=== PATIENT | male | born 1945 | race Caucasian/White ===

== ENCOUNTER 2017-02-01 07:49 | Emergency (ER) | payer MEDICARE, MEDICAID ==
[~2017-02-01] VITALS: Wt 80.0 kg
[2017-02-01] MEDS ORDERED: HYDROCODONE/APAP (5/325) TAB PO ONE (08:30)
--- NOTE | 2017-02-01 09:30 | RADRPT ---
PROCEDURE: XR Lumbar Spine. CLINICAL INDICATION: Back pain. TECHNIQUE: Three views. AP, lateral and cone-down lateral view of the lumbar spine were obtained. COMPARISON: No prior studies are available for comparison. FINDINGS: There are severe degenerative changes throughout the lumbar spine with disk space narrowing and oste ophytes at all levels. There is mild scoliosis convex left due to degenerative change. There is re trolisthesis at L2-3 measuring 0.7 cm. Alignment is otherwise normal. There is no fracture. There is no lytic or blastic lesion. Vascular calcifications are present consistent with atherosclerosis. IMPRESSION: 1. Severe degenerative changes throughout. 2. Retrolisthesis at L2-3 measuring 0.7 cm. 3. Mild scoliosis convex left. 4. Atherosclerosis. 5. No acute abnormality. RPTAT: QQ .Alberto Pedersen MD, Date Time Electronically viewed and signed by .Alberto Pedersen MD, on 02/01/2017 09:30 .R/
[2017-02-01] MEDS ORDERED: IBUP400T22 PO (10:11)
--- NOTE | 2017-02-01 10:15 | ERD ---
ER Documentation Chief Complaint Date/Time DATE: 02/01/17 TIME: 10:12 Chief Complaint PT STATES HE IS HAVING GENERAL BODY PAIN ROS All systems reviewed and are negative except as per history of present illness. Medications Home Meds Active Scripts Ibuprofen* (Motrin*) 400 Mg Tab, 400 MG PO Q6H Y for PAIN AND OR ELEVATED TEMP, #30 TAB Prov:JULIO PERES DO 02/01/17 PMhx/Soc Hx Miscellaneous Medical Probl: Yes (ARISTIDES, MULTIPLE ORTHO SURG) Hx Alcohol Use: No Hx Substance Use: No Hx Tobacco Use: No Smoking Status: Never smoker Physical Exam Vitals Vital Signs Date Time Temp Pulse Resp B/P Pulse Ox O2 Delivery O2 Flow Rate FiO2 02/01/17 07:54 98.6 78 18 138/71 99 Physical Exam Const: [] No distress Eyes: Normal Conjunctiva ENT: Normal External Ears, Nose and Mouth. Neck: Full range of motion..~ No meningismus. No midline tenderness. Resp: Clear to auscultation bilaterally Cardio: Regular rate and rhythm, no murmurs Abd: Soft, non tender, non distended. Normal bowel sounds Skin: Scattered bruises in various stages of healing. No bleeding or skin breaks. Back: Mild paraspinal muscle spasm of the right paraspinal muscle, no midline tenderness, no deformities. Ext: No cyanosis, or edema Neur: Awake and alert and oriented 3, cranial nerves II through XII intact, no cerebellar deficits Psych: Normal Mood and Affect Results 24 hrs Current Medications Medications (Trade) Dose Ordered Sig/Vivi Route PRN Reason Start Time Stop Time Status Last Admin Dose Admin Acetaminophen/ Hydrocodone Bitart ([place] (5/325)) 1 tab ONCE ONCE PO 02/01/17 08:30 02/01/17 08:31 DC 02/01/17 08:17 Procedures/MDM Elderly male with acute exacerbation of his chronic lower back pain. Was given a [place] tab in the emergency room. He stated that he had pain before he came but was asymptomatic in the emergency room after 30 minutes. Going to discharge him with instructions to see his primary care doctor in the next few days as well as ibuprofen, which the patient requested for his pain. Lumbar x-ray interpretation: Multilevel degenerative disc disease without acute fracture dislocation or subluxation. No foreign bodies per Departure Diagnosis: Primary Impression: Chronic lower back pain Condition: Stable Patient Instructions: Self-Care for Low Back Pain Additional Instructions: Call your primary care doctor TOMORROW for an appointment during the next 2-3 days.See the doctor sooner or return here if your condition worsens before your appointment time. JULIO PERES DO Feb 01, 2017 10:14
[2017-02-02] MEDS ORDERED: ENAL20TA PO ×2 (12:02→16:50)
[2017-02-02] MEDS ORDERED: DIVA125C2 PO (12:03)
[2017-02-02] MEDS ORDERED: FURO40TA4 PO (12:04)
[2017-02-02] MEDS ORDERED: AMLO5TAB4 PO (12:04)
[2017-02-02] MEDS ORDERED: ZOLP10TA5 PO ×2 (12:04→16:50)
[2017-02-02] MEDS ORDERED: POTA20TA15 PO (12:05)
[2017-02-02] MEDS ORDERED: TAMS0.4C2 PO ×2 (12:05→16:50)
[2017-02-02] MEDS ORDERED: QUET100T32 PO (12:06)
[2017-02-02] MEDS ORDERED: QUET50TA22 PO (12:06)
[2017-02-02] MEDS ORDERED: LIDO700A45 TP ×2 (12:07→16:50)
[2017-02-02] MEDS ORDERED: ESCI10TA48 PO (12:07)
[2017-02-02] MEDS ORDERED: EZET10TA3 PO ×2 (12:08→16:50)
[2017-02-02] MEDS ORDERED: FURO40SO PO (16:50)
[2017-02-02] MEDS ORDERED: POTA25TA PO (16:50)
[2017-02-02] MEDS ORDERED: QUET100T PO (16:50)
[2017-02-02] MEDS ORDERED: LORA0.5T PO (16:50)
[2017-02-02] MEDS ORDERED: DOCU-159 PO (16:50)
[2017-02-02] MEDS ORDERED: FLEETOIL RC (16:50)
[2017-02-02] MEDS ORDERED: DIVA125C11 PO (16:50)
[2017-02-02] MEDS ORDERED: HYDR-906 PO (16:50)
[2017-02-02] MEDS ORDERED: IBUP400T22 PO (16:50)
[2017-02-02] MEDS ORDERED: ALBU2.5V3 NEB (16:50)
[2017-02-02] MEDS ORDERED: ESCI5SOL2 PO (16:50)
[2017-02-02] MEDS ORDERED: MULT-542 PO (16:50)
[2017-02-02] MEDS ORDERED: MAGN400O4 PO (16:50)
== END 2017-02-01 12:07 | disposition home or self-care (01) ==
LOC: E/R 07:49
DX: M54.5 Low back pain (principal); R40.2142 Coma scale, eyes open, spontaneous, at arrival to emergency department; R40.2362 Coma scale, best motor response, obeys commands, at arrival to emergency department
CPT/HCPCS: 72100

== ENCOUNTER 2017-02-02 05:55 | Inpatient (IN) | payer MEDICARE, MEDICAID ==
[~2017-02-02] VITALS: Ht 182.9 cm; Wt 64.7 kg
[~2017-02-02 05:55] MED LIST: IBUP400T22 PO
[2017-02-02 05:58] VITALS: Ht 182.9 cm; Wt 64.7 kg
--- NOTE | 2017-02-02 07:29 | ERA ---
ER Documentation Chief Complaint Date/Time DATE: 02/02/17 TIME: 07:23 Chief Complaint bib ra 90. hx dementia, pt called w/ multiple complaints. c/o body pain HPI Patient is a 71-year-old male with history of schizophrenia who presents to the ER with suicidal ideation and disorganized thoughts. The patient states that he was in a rehab center, and was sent to the ER for psychosis. He complains of chronic total body pain. He states that yesterday he passed out, and that this is happened to him before because of his blood pressure dropping when he stands up. He denies trauma. He denies toxic ingestion. He denies drug use. He acknowledges feeling psychotic. He denies plan for suicide. He reports having recent diarrhea. ROS All systems reviewed and are negative except as per history of present illness. Medications Home Meds Discontinued Reported Medications Ezetimibe* (Zetia*) 10 Mg Tablet, 10 MG PO DAILY, TAB 02/02/17 Escitalopram Oxalate* (Escitalopram Oxalate*) 10 Mg Tablet, 10 MG PO DAILY, #30 TAB 02/02/17 Lidocaine (Lidocaine) 1 Each Adh..patch, 1 EACH TP DAILY 02/02/17 Quetiapine Fumarate* (Quetiapine Fumarate*) 100 Mg Tablet, 100 MG PO HS, TAB 02/02/17 Quetiapine Fumarate* (Quetiapine Fumarate*) 50 Mg Tablet, 50 MG PO TID, TAB 02/02/17 Tamsulosin Hcl* (Tamsulosin Hcl*) 0.4 Mg Cap.er.24h, 0.4 MG PO HS, CAP 02/02/17 Potassium Chloride* (K-Dur*) 20 Meq Tab.prt.sr, 20 MEQ PO DAILY, TAB.SA 02/02/17 Zolpidem Tartrate* (Zolpidem Tartrate*) 10 Mg Tablet, 10 MG PO QHS Y for INSOMNIA, #30 TAB 02/02/17 Amlodipine Besylate* (Norvasc*) 5 Mg Tablet, 5 MG PO DAILY, TAB 02/02/17 Furosemide* (Furosemide*) 40 Mg Tablet, 40 MG PO DAILY, TAB 02/02/17 Divalproex Sodium* (Divalproex Sodium*) 125 Mg Cap.sprink, 125 MG PO QID, #120 CAP 02/02/17 Enalapril Maleate* (Enalapril Maleate*) 20 Mg Tablet, 20 MG PO DAILY, TAB 02/02/17 Discontinued Scripts Ibuprofen* (Motrin*) 400 Mg Tab, 400 MG PO Q6H Y for PAIN AND OR ELEVATED TEMP, #30 TAB Prov:JULIO PERES DO 02/01/17 Allergies Allergies: Coded Allergies: Unknown: Unable to obtain (Unverified , 02/02/17) PMhx/Soc Past medical history: Schizophrenia, hyponatremia, orthostatic hypotension Past surgical history: Bilateral knees Social history: Smokes cigarettes, denies alcohol or illicit drugs. Medical and Surgical Hx: pt denies Medical Hx, pt denies Surgical Hx Hx Miscellaneous Medical Probl: Yes (PYSCH, MULTIPLE ORTHO SURG) Hx Alcohol Use: No Hx Substance Use: No Hx Tobacco Use: No Smoking Status: Never smoker FmHx Family History: No coronary disease, No diabetes Physical Exam Vitals Vital Signs Date Time Temp Pulse Resp B/P Pulse Ox O2 Delivery O2 Flow Rate FiO2 02/02/17 08:14 97.6 82 136/106 100 Room Air 02/02/17 07:30 97.8 78 14 150/80 100 Room Air 02/02/17 05:58 98.0 88 20 114/64 99 Physical Exam Const: Alert, no acute distress Head: Atraumatic Eyes: Normal Conjunctiva, no pallor, no icterus ENT: Normal External Ears, Nose and Mouth. Mucous membranes tacky Neck: Full range of motion. No meningismus. Resp: Clear to auscultation bilaterally, no wheezes, no rales Cardio: Regular rate and rhythm, no murmurs Abd: Soft, non tender, non distended. No guarding, no rebound. Incontinent of urine Rectal: Guaiac negative, control positive brown stool Skin: No petechiae or rashes, ecchymosis to right hip without bony tenderness. Back: No midline or flank tenderness Ext: No cyanosis, 1+ pitting edema bilateral lower extremities Neur: Awake and alert, cranial nerves II through XII intact bilaterally, moves and feels 4 extremities appropriately, no tremor Psych: Rapid speech, disorganized thought pattern, flight of ideas Result Diagram: 02/02/17 0937 02/02/17 0937 Results 24 hrs Laboratory Tests Test 02/02/17 09:31 02/02/17 09:37 02/02/17 09:40 02/02/17 10:35 Osmolality 268mOsm/kg White Blood Count 9.010^3/ul Red Blood Count 3.3310^6/ul Hemoglobin 9.5g/dl Hematocrit 28.4% Mean Corpuscular Volume 85.3fl Mean Corpuscular Hemoglobin 28.5pg Mean Corpuscular Hemoglobin Concent 33.5g/dl Red Cell Distribution Width 12.1% Platelet Count 81126^3/UL Mean Platelet Volume 9.7fl Neutrophils % 83.7% Lymphocytes % 8.1% Monocytes % 5.5% Eosinophils % 1.8% Basophils % 0.3% Nucleated Red Blood Cells % 0.0/100WBC Neutrophils # 7.510^3/ul Lymphocytes # 0.710^3/ul Monocytes # 0.510^3/ul Eosinophils # 0.210^3/ul Basophils # 0.010^3/ul Nucleated Red Blood Cells # 0.010^3/ul Prothrombin Time 13.7Sec Prothrombin Time Ratio 1.1 INR International Normalized Ratio 1.05 Sodium Level 124mmol/L Potassium Level 4.6mmol/L Chloride Level 97mmol/L Carbon Dioxide Level 22mmol/L Anion Gap 10 Blood Urea Nitrogen 24mg/dl Creatinine 1.05mg/dl Glucose Level 92mg/dl Calcium Level 9.1mg/dl Total Bilirubin 0.1mg/dl Direct Bilirubin 0.00mg/dl Indirect Bilirubin 0.1mg/dl Aspartate Amino Transf (AST/SGOT) 31IU/L Alanine Aminotransferase (ALT/SGPT) 32IU/L Alkaline Phosphatase 67IU/L Total Protein 6.2g/dl Albumin 4.2g/dl Globulin 2.00g/dl Albumin/Globulin Ratio 2.10 Salicylates Level < 1.0mg/dl Acetaminophen Level < 10.0ug/ml Ethyl Alcohol Level < 10.0mg/dl Urine Color STRAW Urine Clarity CLEAR Urine pH 7.0 Urine Specific [place] 1.006 Urine Ketones TRACEmg/dL Urine Nitrite NEGATIVEmg/dL Urine Bilirubin NEGATIVEmg/dL Urine Urobilinogen NEGATIVEmg/dL Urine Leukocyte Esterase NEGATIVELeu/ul Urine Hemoglobin NEGATIVEmg/dL Urine Osmolality 274mOsm/kg Urine Random Creatinine 21.22mg/dl Urine Random Sodium 65mmol/L Urine Glucose NEGATIVEmg/dL Urine Total Protein NEGATIVEmg/dl Urine Opiates Screen Negative Urine Barbiturates Negative Urine Amphetamines Screen Negative Urine Benzodiazepines Screen Negative Urine Cocaine Screen Negative Urine Cannabinoids Negative Thyroid Stimulating Hormone (TSH) 3.440MIU/L Current Medications Medications (Trade) Dose Ordered Sig/Vivi Route PRN Reason Start Time Stop Time Status Last Admin Dose Admin Lorazepam (Ativan) 1 mg ONCE ONCE PO 02/02/17 07:30 02/02/17 07:31 DC 02/02/17 07:58 Olanzapine 5 mg 5 mg ONCE ONCE PO 02/02/17 07:30 02/02/17 07:31 DC 02/02/17 07:58 Sodium Chloride (NS) 1,000 ml @ 1,000 mls/hr Q1H ONCE IV 02/02/17 13:00 02/02/17 13:59 DC Procedures/MDM EKG read by me: Time 823, rate 80 Rhythm: Normal sinus [place]: Normal Intervals: Normal ST-T waves: no ischemic changes Ectopy: Occasional PVCs and PACs. Q-waves: No Impression: No evidence of ischemia or arrhythmia MDM: Patient is a 71-year-old male who presents to the ER with signs of psychosis. History is limited due to the patient not being a reliable historian. For example, he states that he had a stroke yesterday, that his sodium level is usually 0. He has no signs of toxic ingestion. He has normal vital signs, and appears medically well. The patient is found to be hyponatremic with a sodium of 124. He states that he has a history of low sodium, but I do not know what his baseline is or what the etiology of his hyponatremia is. Patient cannot tell me what medications he is taking, but there is record of him being on Lasix and potassium. It is unclear why he is taking Lasix. Given that he reports a history of orthostatic hypotension, he may be over diuresed. Urine electrolytes were sent, and a small fluid challenge was given due to the patient having an elevated BUN to creatinine ratio. Repeat BMP was ordered. I will admit the patient to observation for further workup of his hyponatremia and until his sodium level has stabilized. The patient will need psychiatric evaluation for possible hold prior to discharge. The patient was found to have a normocytic anemic, but has a negative guaiac exam. His baseline hemoglobin is unknown. Departure Diagnosis: Primary Impression: Hyponatremia Additional Impressions: Psychosis Qualified Code: F20.9 - Schizophrenia, unspecified type Anemia Qualified Code: D64.9 - Anemia, unspecified type Condition: Stable REGINE HEAD MD Feb 02, 2017 07:29
[2017-02-02] MEDS ORDERED: OLANZAPINE 5 MG TAB PO ONE (07:30)
[2017-02-02] MEDS ORDERED: LORAZEPAM 1 MG TAB PO ONE (07:30)
[2017-02-02 09:52] LABS: ADD SCAN DIFF NO
[2017-02-02 09:53] LABS: BASOPHILS % 0.3 % (0.0-2.0); EOSINOPHILS # 0.2 10^3/ul (0.0-0.5); EOSINOPHILS % 1.8 % (0.0-7.0); HEMATOCRIT 28.4 % (42.0-52.0); HEMOGLOBIN 9.5 g/dl (14.0-18.0); LYMPHOCYTES # 0.7 10^3/ul (0.8-2.9); LYMPHOCYTES % 8.1 % (15.0-51.0); MEAN CORPUSCULAR HEMOGLOBIN 28.5 pg (29.0-33.0); MEAN CORPUSCULAR HGB CONC 33.5 g/dl (32.0-37.0); MEAN CORPUSCULAR VOLUME 85.3 fl (82.0-101.0); MEAN PLATELET VOLUME 9.7 fl (7.4-10.4); MONOCYTE # 0.5 10^3/ul (0.3-0.9); MONOCYTES % 5.5 % (0.0-11.0); NEUTROPHIL # 7.5 10^3/ul (1.6-7.5); NEUTROPHILS % 83.7 % (39.0-77.0); PLATELET COUNT 241 10^3/UL (140-415); RED BLOOD COUNT 3.33 10^6/ul (4.70-6.10); RED CELL DISTRIBUTION WIDTH 12.1 % (11.5-14.5)
[2017-02-02 09:57] LABS: ADD UMIC NO; UR ASCORBIC ACID NEGATIVE (NEGATIVE); UR BILIRUBIN (Dip) NEGATIVE (NEGATIVE); UR BLOOD (Dip) NEGATIVE (NEGATIVE); UR CLARITY CLEAR (CLEAR); UR COLOR STRAW (YELLOW); UR GLUCOSE (Dip) NEGATIVE (NEGATIVE); UR KETONES (Dip) TRACE mg/dL (NEGATIVE); UR LEUKOCYTE ESTERASE (Dip) NEGATIVE Leu/ul (NEGATIVE); UR NITRITE (Dip) NEGATIVE (NEGATIVE); UR SPECIFIC GRAVITY (Dip) 1.006 (1.003-1.030); UR TOTAL PROTEIN (Dip) NEGATIVE (NEGATIVE); UR UROBILINOGEN (Dip) NEGATIVE (NEGATIVE)
[2017-02-02 10:21] LABS: INR 1.05; PROTIME 13.7 Sec (12.2-14.2); PT RATIO 1.1
[2017-02-02 10:27] LABS: ALANINE AMINOTRANSFERASE 32 IU/L (13-69); ALBUMIN 4.2 g/dl (3.3-4.9); ALKALINE PHOSPHATASE 67 IU/L (42-121); ANION GAP 10 (8-16); ASPARTATE AMINO TRANSFERASE 31 IU/L (15-46); BILIRUBIN,INDIRECT 0.1 mg/dl (0-1.1); BILIRUBIN,TOTAL 0.1 mg/dl (0.2-1.3); BLOOD UREA NITROGEN 24 mg/dl (7-20); CALCIUM 9.1 mg/dl (8.4-10.2); CARBON DIOXIDE 22 mmol/L (21-31); CHLORIDE 97 mmol/L (97-110); CREATININE 1.05 mg/dl (0.61-1.24); GLUCOSE 92 mg/dl (70-220); POTASSIUM 4.6 mmol/L (3.5-5.1); SODIUM 124 mmol/L (135-144); TOTAL PROTEIN 6.2 g/dl (6.1-8.1)
[2017-02-02 10:33] LABS: ACETAMINOPHEN < 10.0 ug/ml (10.0-30.0)
[2017-02-02 10:34] LABS: SALICYLATE < 1.0 mg/dl (5.0-30.0)
[2017-02-02 10:35] LABS: ETHANOL < 10.0 mg/dl
[2017-02-02 10:42] LABS: OPIATES Negative (NEGATIVE)
[2017-02-02 10:53] LABS: BARBITURATES Negative (NEGATIVE); BENZODIAZEPINES Negative (NEGATIVE); CANNABINOIDS Negative (NEGATIVE); COCAINE Negative (NEGATIVE)
[2017-02-02] MEDS ORDERED: ENAL20TA PO ×2 (12:02→16:50)
[2017-02-02] MEDS ORDERED: DIVA125C2 PO (12:03)
[2017-02-02] MEDS ORDERED: FURO40TA4 PO (12:04)
[2017-02-02] MEDS ORDERED: ZOLP10TA5 PO ×2 (12:04→16:50)
[2017-02-02] MEDS ORDERED: AMLO5TAB4 PO (12:04)
[2017-02-02] MEDS ORDERED: POTA20TA15 PO (12:05)
[2017-02-02] MEDS ORDERED: TAMS0.4C2 PO ×2 (12:05→16:50)
[2017-02-02] MEDS ORDERED: QUET50TA22 PO (12:06)
[2017-02-02] MEDS ORDERED: QUET100T32 PO (12:06)
[2017-02-02] MEDS ORDERED: ESCI10TA48 PO (12:07)
[2017-02-02] MEDS ORDERED: LIDO700A45 TP ×2 (12:07→16:50)
[2017-02-02] MEDS ORDERED: EZET10TA3 PO ×2 (12:08→16:50)
[2017-02-02] MEDS ORDERED: SOD CHLORIDE 0.9% 1,000 ML IV ONE (13:00)
[2017-02-02] MEDS ORDERED: ACETAMINOPHEN 325 MG TAB PO PRN ×2 (14:30→15:00)
[2017-02-02] MEDS ORDERED: ONDANSETRON 4 MG INJ IV PRN ×2 (14:30→15:00)
[2017-02-02] MEDS ORDERED: morphine 2 MG INJ IV PRN (15:00)
[2017-02-02] MEDS ORDERED: NACL 0.9% 3 ML SYG IV SCH (15:00)
--- NOTE | 2017-02-02 15:02 | HP ---
Date/Time of Note Date/Time of Note DATE: 02/02/17 TIME: 14:58 Assessment/Plan VTE Prophylaxis VTE Prophylaxis Intervention: SCD's Assessment/Plan Chief Complaint/Hosp Course 1. Hyponatremia-cause is unknown at this time IV fluids with normal saline, urine sodium is within normal limits going against SIADH 2. Psychiatric disorder likely schizophrenia Start Risperdal 0.5 twice daily, patient will likely benefit from telemetry psych eval 3. Normocytic anemia likely of chronic disease Monitor Prophylaxis: SCDs Problems: HPI/ROS Admit Date/Time Admit Date/Time February 02, 2017 Hx of Present Illness She is a 71-year-old male with history of psychiatric disorder. Patient is a poor historian medical history is unable to be obtained. Patient states he comes in with generalized body pain, patient is very tangential and incoherent, in the ER he was found to have a low sodium. ROS Unable to obtain secondary to psychiatric illness PMH/Family/Social Past Medical History Unable to obtain secondary to psychiatric illness Past Surgical History Unable to obtain Social History Unable to obtain Smoking Status: Never smoker Exam/Review of Systems Vital Signs Vitals Vital Signs Date Time Temp Pulse Resp B/P Pulse Ox O2 Delivery O2 Flow Rate FiO2 02/02/17 08:14 97.6 82 136/106 100 Room Air 02/02/17 07:30 14 Exam Constitutional: alert Psych: confusion Head: normocephalic Respiratory: clear to auscultation Cardiovascular: regular rate and rhythm Gastrointestinal: soft, No distended Musculoskeletal: No nl extremities to inspection (Bruising noted in left thigh) Labs Result Diagram: 02/02/17 0937 02/02/17 0937 Medications Medications Current Medications Sodium Chloride (NS) 1,000 ml @ 100 mls/hr Q10H IV ; Start 02/02/17 at 14:36 Ondansetron HCl (Zofran Inj) 4 mg Q6H PRN IV NAUSEA AND/OR VOMITING; Start 02/02 at 15:00 Acetaminophen (Tylenol Tab) 650 mg Q6H PRN PO PAIN LEVEL 1-3 OR FEVER; Start at 15:00 Acetaminophen/ Hydrocodone Bitart ([place] (5/325)) 1 tab Q6H PRN PO MODERATE PAIN LEVEL 4-6; Start 02/02/17 at 15:00 Morphine Sulfate (morphine) 2 mg Q4H PRN IV SEVERE PAIN LEVEL 7-10; Start at 15:00 NACHO SULLIVAN Feb 02, 2017 15:02
[2017-02-02] MEDS: HYDROCODONE/APAP (5/325) TAB PO PRN ×2 (15:07→23:09)
[2017-02-02] MEDS: SOD CHLORIDE 0.9% 1,000 ML IV SCH ×2 (15:14→17:01)
[2017-02-02] MEDS ORDERED: LORAZEPAM 2 MG INJ IV PRN (15:30)
[2017-02-02 15:59] VITALS: TEMP 98.3
[2017-02-02 16:21] VITALS: BP 150/78; PULSE 73; RESP 18
[2017-02-02] MEDS ORDERED: HYDR-906 PO (16:50)
[2017-02-02] MEDS ORDERED: QUET100T PO (16:50)
[2017-02-02] MEDS ORDERED: MAGN400O4 PO (16:50)
[2017-02-02] MEDS ORDERED: DIVA125C11 PO (16:50)
[2017-02-02] MEDS ORDERED: DOCU-159 PO (16:50)
[2017-02-02] MEDS ORDERED: FURO40SO PO (16:50)
[2017-02-02] MEDS ORDERED: POTA25TA PO (16:50)
[2017-02-02] MEDS ORDERED: ALBU2.5V3 NEB (16:50)
[2017-02-02] MEDS ORDERED: LORA0.5T PO (16:50)
[2017-02-02] MEDS ORDERED: ESCI5SOL2 PO (16:50)
[2017-02-02] MEDS ORDERED: IBUP400T22 PO (16:50)
[2017-02-02] MEDS ORDERED: MULT-542 PO (16:50)
[2017-02-02] MEDS ORDERED: MINE133E23 RC (16:50)
[2017-02-02 17:51] LABS: CALCIUM 9.2 mg/dl (8.4-10.2); CREATININE 0.95 mg/dl (0.61-1.24); POTASSIUM 4.4 mmol/L (3.5-5.1)
[2017-02-02 20:23] VITALS: BP 140/63; RESP 18
[2017-02-03] MEDS: ZOLPIDEM 5 MG TAB PO PRN (00:26)
[2017-02-03 02:30] VITALS: BP 152/69; RESP 18
[2017-02-03] MEDS: SOD CHLORIDE 0.9% 1,000 ML IV SCH ×3 (03:15→20:38)
[2017-02-03 05:21] LABS: ADD SCAN DIFF NO
[2017-02-03 05:30] LABS: BASOPHIL # 0.1 10^3/ul (0.0-0.1); BASOPHILS % 1.3 % (0.0-2.0); EOSINOPHILS # 0.2 10^3/ul (0.0-0.5); EOSINOPHILS % 6.1 % (0.0-7.0); HEMATOCRIT 28.2 % (42.0-52.0); HEMOGLOBIN 9.1 g/dl (14.0-18.0); LYMPHOCYTES # 0.8 10^3/ul (0.8-2.9); LYMPHOCYTES % 20.9 % (15.0-51.0); MEAN CORPUSCULAR HEMOGLOBIN 27.7 pg (29.0-33.0); MEAN CORPUSCULAR HGB CONC 32.3 g/dl (32.0-37.0); MEAN PLATELET VOLUME 9.7 fl (7.4-10.4); MONOCYTE # 0.4 10^3/ul (0.3-0.9); MONOCYTES % 11.1 % (0.0-11.0); NEUTROPHIL # 2.3 10^3/ul (1.6-7.5); NEUTROPHILS % 59.8 % (39.0-77.0); PLATELET COUNT 255 10^3/UL (140-415); RED BLOOD COUNT 3.28 10^6/ul (4.70-6.10); RED CELL DISTRIBUTION WIDTH 12.3 % (11.5-14.5); WHITE BLOOD COUNT 3.8 10^3/ul (4.8-10.8)
[2017-02-03 05:51] LABS: CALCIUM 9.1 mg/dl (8.4-10.2); CREATININE 1.08 mg/dl (0.61-1.24); MAGNESIUM 1.6 mg/dl (1.7-2.5); PHOSPHORUS 4.5 mg/dl (2.5-4.9); POTASSIUM 4.9 mmol/L (3.5-5.1)
[2017-02-03 08:02] VITALS: BP 132/63; RESP 17
[2017-02-03] MEDS: RISPERIDONE 0.25 MG TAB PO SCH ×2 (09:44→20:34)
[2017-02-03] MEDS: HYDROCODONE/APAP (5/325) TAB PO PRN ×2 (12:52→20:35)
[2017-02-03] MEDS ORDERED: MAGNESIUM SULFATE 2 GM/50 ML 50 ML IVPB ONE (14:00)
[2017-02-03 14:53] VITALS: BP 142/66; RESP 17
--- NOTE | 2017-02-03 19:43 | PN ---
Date/Time of Note Date/Time of Note DATE: 02/03/17 TIME: 19:41 Assessment/Plan VTE Prophylaxis VTE Prophylaxis Intervention: SCD's Lines/Catheters IV Catheter Type (from Nrs): Peripheral IV Assessment/Plan Chief Complaint/Hosp Course 1. Hyponatremia-improved IV fluids with normal saline, urine sodium is within normal limits going against SIADH 2. 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 Normocytic anemia likely of chronic disease Monitor 4. COPD DuoNeb as needed Prophylaxis: SCDs Problems: Subjective 24 Hr Interval Summary Constitutional: disoriented Exam/Review of Systems Vital Signs Vitals Vital Signs Date Time Temp Pulse Resp B/P Pulse Ox O2 Delivery O2 Flow Rate FiO2 02/03/17 14:53 98.3 80 17 142/66 97 02/02/17 16:21 Room Air Intake and Output 02/02/17 02/02/17 02/03/17 15:00 23:00 07:00 Intake Total 25 ml 1760 ml Output Total 1100 ml Balance 25 ml 660 ml Exam Psych: confusion Respiratory: clear to auscultation Cardiovascular: regular rate and rhythm Gastrointestinal: soft, No distended Musculoskeletal: nl extremities to inspection Results Result Diagram: 02/03/17 0455 02/03/17 0455 Results 24 hrs Laboratory Tests Test 02/03/17 04:55 White Blood Count 3.8 #L Red Blood Count 3.28 L Hemoglobin 9.1 L Hematocrit 28.2 L Mean Corpuscular Volume 86.0 Mean Corpuscular Hemoglobin 27.7 L Mean Corpuscular Hemoglobin Concent 32.3 Red Cell Distribution Width 12.3 Platelet Count 255 Mean Platelet Volume 9.7 Neutrophils % 59.8 Lymphocytes % 20.9 Monocytes % 11.1 H Eosinophils % 6.1 Basophils % 1.3 Nucleated Red Blood Cells % 0.0 Neutrophils # 2.3 Lymphocytes # 0.8 Monocytes # 0.4 Eosinophils # 0.2 Basophils # 0.1 Nucleated Red Blood Cells # 0.0 Sodium Level 134 L Potassium Level 4.9 Chloride Level 99 Carbon Dioxide Level 23 Anion Gap 17 H Blood Urea Nitrogen 23 H Creatinine 1.08 Glucose Level 88 Hemoglobin A1c 5.3 Calcium Level 9.1 Phosphorus Level 4.5 Magnesium Level 1.6 L Medications Medications Current Medications Sodium Chloride (NS) 1,000 ml @ 100 mls/hr Q10H IV Last administered on 03:15; Admin Dose 100 MLS/HR; Start 02/02/17 at 14:36 Ondansetron HCl (Zofran Inj) 4 mg Q6H PRN IV NAUSEA AND/OR VOMITING; Start 02/02 at 15:00 Acetaminophen (Tylenol Tab) 650 mg Q6H PRN PO PAIN LEVEL 1-3 OR FEVER; Start at 15:00 Acetaminophen/ Hydrocodone Bitart ([place] (5/325)) 1 tab Q6H PRN PO MODERATE PAIN LEVEL 4-6 Last administered on 02/03/17 12:52; Admin Dose 1 TAB; Start 02/02 at 15:00 Morphine Sulfate (morphine) 2 mg Q4H PRN IV SEVERE PAIN LEVEL 7-10; Start at 15:00 Risperidone (Risperdal) 0.5 mg BID PO Last administered on 02/03/17 09:44; Admin Dose 0.5 MG; Start 02/03/17 at 09:00 Lorazepam (Ativan) 1 mg Q4 PRN IV AGITATION/ANXIETY; Start 02/02/17 at 15:30 Lorazepam (Ativan) 0.5 mg Q6 PRN PO ANXIETY; Start 02/02/17 at 22:30 Zolpidem Tartrate (Ambien) 10 mg QHS PRN PO INSOMNIA Last administered on 00:26; Admin Dose 10 MG; Start 02/02/17 at 22:30 NACHO SULLIVAN Feb 03, 2017 19:42
[2017-02-03 20:30] VITALS: BP 166/76; RESP 18
[2017-02-04] MEDS: ZOLPIDEM 5 MG TAB PO PRN (00:10)
[2017-02-04 02:36] VITALS: BP 124/55; RESP 18
[2017-02-04] MEDS: HYDROCODONE/APAP (5/325) TAB PO PRN ×3 (04:21→17:45)
[2017-02-04] MEDS: LORAZEPAM 0.5 MG TAB PO PRN ×2 (04:24→21:17)
[2017-02-04] MEDS: ALBUTEROL/IPRATROPIUM (NEB) 3 ML AMP HHN PRN ×2 (04:40→21:30)
[2017-02-04 06:24] LABS: ADD SCAN DIFF NO
[2017-02-04 06:41] LABS: BASOPHILS % 0.4 % (0.0-2.0); EOSINOPHILS # 0.2 10^3/ul (0.0-0.5); EOSINOPHILS % 5.1 % (0.0-7.0); HEMOGLOBIN 9.3 g/dl (14.0-18.0); LYMPHOCYTES # 1.1 10^3/ul (0.8-2.9); LYMPHOCYTES % 23.3 % (15.0-51.0); MEAN CORPUSCULAR HEMOGLOBIN 27.8 pg (29.0-33.0); MEAN CORPUSCULAR HGB CONC 32.1 g/dl (32.0-37.0); MEAN CORPUSCULAR VOLUME 86.8 fl (82.0-101.0); MEAN PLATELET VOLUME 9.9 fl (7.4-10.4); MONOCYTE # 0.5 10^3/ul (0.3-0.9); MONOCYTES % 10.4 % (0.0-11.0); NEUTROPHIL # 2.9 10^3/ul (1.6-7.5); NEUTROPHILS % 60.6 % (39.0-77.0); PLATELET COUNT 262 10^3/UL (140-415); RED BLOOD COUNT 3.34 10^6/ul (4.70-6.10); RED CELL DISTRIBUTION WIDTH 12.2 % (11.5-14.5); WHITE BLOOD COUNT 4.7 10^3/ul (4.8-10.8)
[2017-02-04 07:00] LABS: CALCIUM 8.9 mg/dl (8.4-10.2); CREATININE 1.02 mg/dl (0.61-1.24); MAGNESIUM 1.9 mg/dl (1.7-2.5); POTASSIUM 4.4 mmol/L (3.5-5.1)
[2017-02-04] MEDS: SOD CHLORIDE 0.9% 1,000 ML IV SCH ×2 (07:58→17:46)
[2017-02-04] MEDS: RISPERIDONE 0.25 MG TAB PO SCH ×2 (08:10→20:16)
[2017-02-04 08:15] VITALS: BP 157/65; RESP 18
[2017-02-04 14:56] VITALS: BP 126/60; RESP 18
--- NOTE | 2017-02-04 15:41 | PN ---
Date/Time of Note Date/Time of Note DATE: 02/04/17 TIME: 15:38 Assessment/Plan VTE Prophylaxis VTE Prophylaxis Intervention: SCD's Lines/Catheters IV [facility] Type (from [facility] Peripheral IV Urinary Cath still in place: No Assessment/Plan Assessment/Plan 1. Hyponatremia-improved, avoid excessive water intake, follow up with Na 2. Psychiatric disorder likely schizophrenia, awaiting for psychiatry evaluation 3. Normocytic anemia likely of chronic disease, stable 4. COPD, stable 5. Prophylaxis: SCDs Subjective 24 Hr Interval Summary Free Text/Dictation no distress Exam/Review of Systems Vital Signs Vitals Vital Signs Date Time Temp Pulse Resp B/P Pulse Ox O2 Delivery O2 Flow Rate FiO2 02/04/17 14:56 97.2 66 18 126/60 98 02/04/17 04:43 21 02/02/17 16:21 Room Air Intake and Output 02/03/17 02/03/17 02/04/17 15:00 23:00 07:00 Intake Total 1630 ml 1930 ml Output Total 1475 ml 2000 ml Balance 155 ml -70 ml Exam Constitutional: alert, oriented, well developed Head: atraumatic, normocephalic Eyes: EOMI, PERRL, nl conjunctiva, nl lids ENMT: nl external ears & nose, nl lips & teeth, nl nasal mucosa & septum Neck: non-tender, supple Respiratory: clear to auscultation, normal air movement, No congested cough, No crackles/rales, No diminished breath sounds, No intercostal retraction, No labored breathing, No other, No respirations, No tactile fremitus, No wheezing Cardiovascular: nl pulses, regular rate and rhythm, No S3, No S4, No bruits, No diastolic murmur, No edema, No gallop, No irregular rhythm, No jugular venous distention (JVD), No murmurs/extra sounds, No other, No rub, No systolic murmur Gastrointestinal: nl liver, spleen, non-tender, soft, No ascites, No bowel sounds, No distended, No firm, No hepatomegaly, No mass , No other, No rebound or guarding, No splenomegaly, No surgical scars, No tender Musculoskeletal: nl extremities to inspection Extremities: normal pulses, No calf tenderness, No clubbing, No cyanosis, No edema, No other, No palpable cord, No pitting pedal edema, No tenderness 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, nl mental status, nl speech, nl strength Skin: nl turgor Results Result Diagram: 02/04/1715 02/04/1715 Results 24 hrs Laboratory Tests Test 02/04/17 05:15 White Blood Count 4.7 #L Red Blood Count 3.34 L Hemoglobin 9.3 L Hematocrit 29.0 L Mean Corpuscular Volume 86.8 Mean Corpuscular Hemoglobin 27.8 L Mean Corpuscular Hemoglobin Concent 32.1 Red Cell Distribution Width 12.2 Platelet Count 262 Mean Platelet Volume 9.9 Neutrophils % 60.6 Lymphocytes % 23.3 Monocytes % 10.4 Eosinophils % 5.1 Basophils % 0.4 Nucleated Red Blood Cells % 0.0 Neutrophils # 2.9 Lymphocytes # 1.1 Monocytes # 0.5 Eosinophils # 0.2 Basophils # 0.0 Nucleated Red Blood Cells # 0.0 Sodium Level 134 L Potassium Level 4.4 Chloride Level 106 Carbon Dioxide Level 20 L Anion Gap 12 Blood Urea Nitrogen 25 H Creatinine 1.02 Glucose Level 97 Calcium Level 8.9 Magnesium Level 1.9 Medications Medications Current Medications Sodium Chloride (NS) 1,000 ml @ 100 mls/hr Q10H IV Last administered on 07:58; Admin Dose 100 MLS/HR; Start 02/02/17 at 14:36 Ondansetron HCl (Zofran Inj) 4 mg Q6H PRN IV NAUSEA AND/OR VOMITING; Start 02/02 at 15:00 Acetaminophen (Tylenol Tab) 650 mg Q6H PRN PO PAIN LEVEL 1-3 OR FEVER; Start at 15:00 Acetaminophen/ Hydrocodone Bitart ([place] (5/325)) 1 tab Q6H PRN PO MODERATE PAIN LEVEL 4-6 Last administered on 02/04/17 11:21; Admin Dose 1 TAB; Start 02/02/17 at 15:00 Morphine Sulfate (morphine) 2 mg Q4H PRN IV SEVERE PAIN LEVEL 7-10 Last administered on 02/04/17 02:17; Admin Dose 2 MG; Start 02/02/17 at 15:00 Risperidone (Risperdal) 0.5 mg BID PO Last administered on 02/04/17 08:10; Admin Dose 0.5 MG; Start 02/03/17 at 09:00 Lorazepam (Ativan) 0.5 mg Q6 PRN PO ANXIETY Last administered on 02/04/17 04: 24; Admin Dose 0.5 MG; Start 02/02/17 at 22:30 Zolpidem Tartrate (Ambien) 10 mg QHS PRN PO INSOMNIA Last administered on 00:10; Admin Dose 10 MG; Start 02/02/17 at 22:30 DUNG MCKEON MD Feb 04, 2017 15:41
--- NOTE | 2017-02-04 17:41 | PSY ---
Date/Time of Note Date/Time of Note DATE: 02/04/17 TIME: 17:35 Psychiatric Subjective Eval Consent Pt consented to telemedicine: Yes Subjective Evaluation Chief Complaint: bib ra 89. hx dementia, pt called w/ multiple complaints. c/o body pain Reason for consult: Evaluation History of present illness Pt is reportedly conserved for a dementia. He also has a history of psychiatric issues so a consult was requested. He reports being diagnosed with "manic depressive paranoid schizophrenia." He states he is not sleeping well, makes statements such as "I " and "I am having flashbacks." He denies si and hi. Report he knows he is in a hospital. Pt reports multiple psychiatric admissions. He states he usually takes seroquel 100mg. Pt knows month, year and reason he is in hospital. Past psychiatric history As noted above. 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 [facility] because they lost his records Hospitalization: yes Family History Unknown Medical history Problems Medical Problems: (1) Anemia Status: Acute (2) Chronic lower back pain Status: Acute (3) Hyponatremia Status: Acute (4) Psychosis Status: Acute Allergies: Coded Allergies: Unknown: Unable to obtain (Unverified , 02/02/17) Substance Abuse Substance use: No known substance abuse Social History Marital status: single Level of education: Unk DPA/Conservatorship: Yes Occupation/Assisted: Unk Psychiatric Objective Eval Mental Status Examination: Eye Contact: Fair Psychomotor Activity: Normal Behavior: Cooperative Speech: Pressured AFFECT: Anxious Mood: Anxious Though Process: Tangential Thought Content: Delusions Homicidal: No On 72 hour hold: No Orientation: x3 Cognition: Alert Insight: Impared Judgement: Impared Laboratory Results Laboratory Tests Test 02/03/17 04:55 02/04/17 05:15 White Blood Count 3.810^3/ul 4.710^3/ul Red Blood Count 3.2810^6/ul 3.3410^6/ul Hemoglobin 9.1g/dl 9.3g/dl Hematocrit 28.2% 29.0% Mean Corpuscular Volume 86.0fl 86.8fl Mean Corpuscular Hemoglobin 27.7pg 27.8pg Mean Corpuscular Hemoglobin Concent 32.3g/dl 32.1g/dl Red Cell Distribution Width 12.3% 12.2% Platelet Count 03355^3/UL 87741^3/UL Mean Platelet Volume 9.7fl 9.9fl Neutrophils % 59.8% 60.6% Lymphocytes % 20.9% 23.3% Monocytes % 11.1% 10.4% Eosinophils % 6.1% 5.1% Basophils % 1.3% 0.4% Nucleated Red Blood Cells % 0.0/100WBC 0.0/100WBC Neutrophils # 2.310^3/ul 2.910^3/ul Lymphocytes # 0.810^3/ul 1.110^3/ul Monocytes # 0.410^3/ul 0.510^3/ul Eosinophils # 0.210^3/ul 0.210^3/ul Basophils # 0.110^3/ul 0.010^3/ul Nucleated Red Blood Cells # 0.010^3/ul 0.010^3/ul Sodium Level 134mmol/L 134mmol/L Potassium Level 4.9mmol/L 4.4mmol/L Chloride Level 99mmol/L 106mmol/L Carbon Dioxide Level 23mmol/L 20mmol/L Anion Gap 17 12 Blood Urea Nitrogen 23mg/dl 25mg/dl Creatinine 1.08mg/dl 1.02mg/dl Glucose Level 88mg/dl 97mg/dl Hemoglobin A1c 5.3% Calcium Level 9.1mg/dl 8.9mg/dl Phosphorus Level 4.5mg/dl Magnesium Level 1.6mg/dl 1.9mg/dl Assessment and Plan Assessment/Diagnosis [place] I: Unspecified Psychotic Disorder, Dementia [place] III: Hyponatremia Recommendation/Plan Medication Management Consider increasing risperdal to 1mg bid. Psychotherapy N/A Pt. Caregiver/Family Education N/A. Follow-up/Disposition Patient increasing psychosis likely delirium related to the hyponatremia. However, he appeared more stable than anticipated based on past notes. He remains psychotic. Unclear, however, if this is his baseline. Adjustment in risperdal might be beneficial. TRISTAN LING Feb 04, 2017 17:40
[2017-02-04 21:01] VITALS: BP 146/68; RESP 18
[2017-02-05] MEDS: HYDROCODONE/APAP (5/325) TAB PO PRN ×4 (00:15→20:50)
[2017-02-05] MEDS: ZOLPIDEM 5 MG TAB PO PRN (00:15)
[2017-02-05] MEDS ORDERED: LORAZEPAM 2 MG INJ IV ONE (01:30)
[2017-02-05 02:57] VITALS: BP 152/72; RESP 20
[2017-02-05] MEDS: SOD CHLORIDE 0.9% 1,000 ML IV SCH ×3 (02:58→22:28)
[2017-02-05 07:15] LABS: CALCIUM 9.5 mg/dl (8.4-10.2); CREATININE 1.01 mg/dl (0.61-1.24); POTASSIUM 4.2 mmol/L (3.5-5.1)
[2017-02-05] MEDS: RISPERIDONE 0.25 MG TAB PO SCH (07:58)
[2017-02-05] MEDS: ALBUTEROL/IPRATROPIUM (NEB) 3 ML AMP HHN PRN (12:34)
[2017-02-05] MEDS: LORAZEPAM 0.5 MG TAB PO PRN (14:06)
--- NOTE | 2017-02-05 16:07 | PSY ---
Date/Time of Note Date/Time of Note DATE: 02/05/17 TIME: 15:54 Psychiatric Subjective Eval Subjective Evaluation Patient location: inpatient Chief Complaint: bib ra 89. hx dementia, pt called w/ multiple complaints. c/o body pain Reason for consult: Evaluation History of present illness 71 yo male with hx dementia and schizophrenia admitted due to hyponatriemia. Pt states he is sucidal and will "put himself into coma" by taking his meds. He is tangential and delusional. Interestingly enough, he is smiling, he is pleasant , with bright affect and future oriented, talkng about his return to SNF. He also reprots derogatory AH; however, again, he is very disorganized and delusional. Quite possibly, can be at his base line. Past psychiatric history hx schizophrenia Hospitalization: yes Family History unknown Medical history Problems Medical Problems: (1) Anemia Status: Acute (2) Chronic lower back pain Status: Acute (3) Hyponatremia Status: Acute (4) Psychosis Status: Acute Allergies: Coded Allergies: Unknown: Unable to obtain (Unverified , 02/02/17) Substance Abuse Substance use: No known substance abuse Social History Marital status: single Level of education: Unk DPA/Conservatorship: Yes Occupation/Senior Living: Unk Psychiatric Objective Eval Mental Status Examination: Appearance: Disheveled Eye Contact: Good Psychomotor Activity: Normal Behavior: Friendly Speech: Clear, Disorganized AFFECT: Appropriate Mood: Appropriate/Full Though Process: Tangential Thought Content: Delusions Suicidal: Yes Homicidal: No Orientation: x2 Cognition: Alert Insight: Impared Judgement: Impared Laboratory Results Laboratory Tests Test 02/04/17 05:15 02/05/17 05:25 White Blood Count 4.710^3/ul Red Blood Count 3.3410^6/ul Hemoglobin 9.3g/dl Hematocrit 29.0% Mean Corpuscular Volume 86.8fl Mean Corpuscular Hemoglobin 27.8pg Mean Corpuscular Hemoglobin Concent 32.1g/dl Red Cell Distribution Width 12.2% Platelet Count 25380^3/UL Mean Platelet Volume 9.9fl Neutrophils % 60.6% Lymphocytes % 23.3% Monocytes % 10.4% Eosinophils % 5.1% Basophils % 0.4% Nucleated Red Blood Cells % 0.0/100WBC Neutrophils # 2.910^3/ul Lymphocytes # 1.110^3/ul Monocytes # 0.510^3/ul Eosinophils # 0.210^3/ul Basophils # 0.010^3/ul Nucleated Red Blood Cells # 0.010^3/ul Sodium Level 134mmol/L 130mmol/L Potassium Level 4.4mmol/L 4.2mmol/L Chloride Level 106mmol/L 106mmol/L Carbon Dioxide Level 20mmol/L 20mmol/L Anion Gap 12 8 Blood Urea Nitrogen 25mg/dl 29mg/dl Creatinine 1.02mg/dl 1.01mg/dl Glucose Level 97mg/dl 87mg/dl Calcium Level 8.9mg/dl 9.5mg/dl Magnesium Level 1.9mg/dl Assessment and Plan Assessment/Diagnosis [place] I: SCHIZOPHRENIA CHRONIC PARANOID [place] II: DEFERED [place] III: PER RECORD [place] IV: SEVERE [place] V: GAF 25 Recommendation/Plan Medication Management PLEASE CONTINUE CURRENT MEDS REGIME. Psychotherapy SUPPORTIVE Follow-up/Disposition PLEASE MAINTAIN 1:1 SITTER. PLEASE RE-EVAL THEN HE WILL BE MEDICALLY CLEARED FOR DISCHARGE. DB PIPER MD Feb 05, 2017 16:06
--- NOTE | 2017-02-05 17:11 | PN ---
Date/Time of Note Date/Time of Note DATE: 02/05/17 TIME: 17:08 Assessment/Plan VTE Prophylaxis VTE Prophylaxis Intervention: SCD's Lines/Catheters IV Catheter Type (from Nrs): Peripheral IV Urinary Cath still in place: No Assessment/Plan Assessment/Plan 1. Hyponatremia-improved, avoid excessive water intake, follow up with Na 2. Psychiatric disorder schizophrenia, suicidal ideation, medically cleared to transfer to psychiatric facility 3. Normocytic anemia likely of chronic disease, stable 4. COPD, stable 5. Prophylaxis: SCDs Subjective 24 Hr Interval Summary Free Text/Dictation alert but delusional, claims suicidal today Exam/Review of Systems Vital Signs Vitals Vital Signs Date Time Temp Pulse Resp B/P Pulse Ox O2 Delivery O2 Flow Rate FiO2 02/05/17 12:34 60 22 94 02/05/17 02:57 98.0 152/72 02/04/17 21:31 21 02/02/17 16:21 Room Air Intake and Output 02/04/17 02/04/17 02/05/17 15:00 23:00 07:00 Intake Total 150 ml 1120 ml 2140 ml Output Total 2650 ml 1350 ml Balance 150 ml -1530 ml 790 ml Exam Constitutional: alert, other (delusional) Head: atraumatic, normocephalic Eyes: EOMI, PERRL, nl conjunctiva, nl lids ENMT: nl external ears & nose, nl lips & teeth, nl nasal mucosa & septum Neck: supple Respiratory: clear to auscultation, normal air movement, No congested cough, No crackles/rales, No diminished breath sounds, No intercostal retraction, No labored breathing, No other, No respirations, No tactile fremitus, No wheezing Cardiovascular: nl pulses, regular rate and rhythm, No S3, No S4, No bruits, No diastolic murmur, No edema, No gallop, No irregular rhythm, No jugular venous distention (JVD), No murmurs/extra sounds, No other, No rub, No systolic murmur Gastrointestinal: nl liver, spleen, non-tender, soft Musculoskeletal: nl extremities to inspection Extremities: normal pulses, No calf tenderness, No clubbing, No cyanosis, No edema, No other, No palpable cord, No pitting pedal edema, No tenderness 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: 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 II-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 intact, confused, nl speech, nl strength Results Result Diagram: 02/04/17 0515 02/05/17 0525 Results 24 hrs Laboratory Tests Test 02/05/17 05:25 Sodium Level 130 L Potassium Level 4.2 Chloride Level 106 Carbon Dioxide Level 20 L Anion Gap 8 Blood Urea Nitrogen 29 H Creatinine 1.01 Glucose Level 87 Calcium Level 9.5 Medications Medications Current Medications Sodium Chloride (NS) 1,000 ml @ 100 mls/hr Q10H IV Last administered on 12:18; Admin Dose 100 MLS/HR; Start 02/02/17 at 14:36 Ondansetron HCl (Zofran Inj) 4 mg Q6H PRN IV NAUSEA AND/OR VOMITING; Start 02/02 at 15:00 Acetaminophen (Tylenol Tab) 650 mg Q6H PRN PO PAIN LEVEL 1-3 OR FEVER; Start at 15:00 Acetaminophen/ Hydrocodone Bitart ([place] (5/325)) 1 tab Q6H PRN PO MODERATE PAIN LEVEL 4-6 Last administered on 02/05/17 14:05; Admin Dose 1 TAB; Start 02/02/17 at 15:00 Morphine Sulfate (morphine) 2 mg Q4H PRN IV SEVERE PAIN LEVEL 7-10 Last administered on 02/04/17 02:17; Admin Dose 2 MG; Start 02/02/17 at 15:00 Lorazepam (Ativan) 0.5 mg Q6 PRN PO ANXIETY Last administered on 02/05/17 14: 06; Admin Dose 0.5 MG; Start 02/02/17 at 22:30 Zolpidem Tartrate (Ambien) 10 mg QHS PRN PO INSOMNIA Last administered on 00:15; Admin Dose 10 MG; Start 02/02/17 at 22:30 Risperidone (Risperdal) 1 mg BID PO ; Start 02/05/17 at 21:00 DUNG MCKEON MD Feb 05, 2017 17:11
[2017-02-05 19:13] VITALS: BP 152/67; RESP 18
[2017-02-05] MEDS: RISPERIDONE 1 MG TAB PO SCH (20:49)
[2017-02-05] MEDS ORDERED: RISPERIDONE 0.25 MG TAB PO SCH (21:00)
[2017-02-06] MEDS: ZOLPIDEM 5 MG TAB PO PRN (01:39)
[2017-02-06 02:00] VITALS: BP 148/76; RESP 18
[2017-02-06] MEDS: HYDROCODONE/APAP (5/325) TAB PO PRN ×4 (03:16→21:27)
[2017-02-06 05:43] LABS: CALCIUM 9.4 mg/dl (8.4-10.2); CREATININE 0.98 mg/dl (0.61-1.24); POTASSIUM 4.2 mmol/L (3.5-5.1)
[2017-02-06 07:40] VITALS: BP 166/77; RESP 20
[2017-02-06] MEDS: ALBUTEROL/IPRATROPIUM (NEB) 3 ML AMP HHN PRN ×3 (07:42→19:43)
[2017-02-06] MEDS: RISPERIDONE 1 MG TAB PO SCH ×2 (08:15→21:01)
[2017-02-06] MEDS: SOD CHLORIDE 0.9% 1,000 ML IV SCH ×3 (08:18→18:36)
[2017-02-06 11:06] VITALS: BP 141/72
[2017-02-06 14:30] VITALS: BP 153/63; RESP 20
--- NOTE | 2017-02-06 15:18 | PN ---
Date/Time of Note Date/Time of Note DATE: 02/06/17 TIME: 15:15 Assessment/Plan VTE Prophylaxis VTE Prophylaxis Intervention: SCD's Lines/Catheters IV Catheter Type (from Nrsg): Peripheral IV Urinary Cath still in place: No Assessment/Plan Assessment/Plan 1. Hyponatremia, improved, avoid excessive water intake, follow up with Na 2. Psychiatric disorder schizophrenia, suicidal ideation, medically cleared to transfer to psychiatric facility 3. Normocytic anemia likely of chronic disease, stable 4. COPD, stable 5. pain on joints, x-ray 6. Prophylaxis: SCDs Subjective 24 Hr Interval Summary Free Text/Dictation pain on right wrist, both knees, and right ankle Exam/Review of Systems Vital Signs Vitals Vital Signs Date Time Temp Pulse Resp B/P Pulse Ox O2 Delivery O2 Flow Rate FiO2 02/06/17 14:30 98.1 105 20 153/63 98 02/06/17 14:18 21 02/02/17 16:21 Room Air Intake and Output 02/05/17 02/05/17 02/06/17 15:00 23:00 07:00 Intake Total 700 ml 2300 ml 650 ml Output Total 1000 ml Balance 700 ml 1300 ml 650 ml Exam Constitutional: alert, oriented, well developed Head: atraumatic, normocephalic Eyes: EOMI, PERRL, nl conjunctiva, nl lids ENMT: nl external ears & nose, nl lips & teeth, nl nasal mucosa & septum Neck: supple Respiratory: clear to auscultation, normal air movement, No congested cough, No crackles/rales, No diminished breath sounds, No intercostal retraction, No labored breathing, No other, No respirations, No tactile fremitus, No wheezing Cardiovascular: nl pulses, regular rate and rhythm, No S3, No S4, No bruits, No diastolic murmur, No edema, No gallop, No irregular rhythm, No jugular venous distention (JVD), No murmurs/extra sounds, No other, No rub, No systolic murmur Gastrointestinal: nl liver, spleen, non-tender, soft, No ascites, No bowel sounds, No distended, No firm, No hepatomegaly, No mass , No other, No rebound or guarding, No splenomegaly, No surgical scars, No tender Musculoskeletal: nl extremities to inspection Extremities: normal pulses, No calf tenderness, No clubbing, No cyanosis, No edema, No palpable cord, No pitting pedal edema, No tenderness 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: 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-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 intact, nl speech, nl strength Skin: nl turgor Results Result Diagram: 02/04/17 0515 02/06/17 0427 Results 24 hrs Laboratory Tests Test 02/06/17 04:27 Sodium Level 132 L Potassium Level 4.2 Chloride Level 107 Carbon Dioxide Level 21 Anion Gap 8 Blood Urea Nitrogen 26 H Creatinine 0.98 Glucose Level 93 Calcium Level 9.4 Medications Medications Current Medications Sodium Chloride (NS) 1,000 ml @ 100 mls/hr Q10H IV Last administered on 09:27; Admin Dose 100 MLS/HR; Start 02/02/17 at 14:36 Ondansetron HCl (Zofran Inj) 4 mg Q6H PRN IV NAUSEA AND/OR VOMITING; Start 02/02 at 15:00 Acetaminophen (Tylenol Tab) 650 mg Q6H PRN PO PAIN LEVEL 1-3 OR FEVER; Start at 15:00 Acetaminophen/ Hydrocodone Bitart ([place] (5/325)) 1 tab Q6H PRN PO MODERATE PAIN LEVEL 4-6 Last administered on 02/06/17 09:22; Admin Dose 1 TAB; Start 02/02/17 at 15:00 Morphine Sulfate (morphine) 2 mg Q4H PRN IV SEVERE PAIN LEVEL 7-10 Last administered on 02/04/17 02:17; Admin Dose 2 MG; Start 02/02/17 at 15:00 Lorazepam (Ativan) 0.5 mg Q6 PRN PO ANXIETY Last administered on 02/05/17 14: 06; Admin Dose 0.5 MG; Start 02/02/17 at 22:30 Zolpidem Tartrate (Ambien) 10 mg QHS PRN PO INSOMNIA Last administered on 01:39; Admin Dose 10 MG; Start 02/02/17 at 22:30 Risperidone (Risperdal) 1 mg BID PO Last administered on 02/06/17 08:15; Admin Dose 1 MG; Start 02/05/17 at 21:00 DUNG MCKEON MD Feb 06, 2017 15:18
[2017-02-06 20:00] VITALS: BP 167/77; PULSE 97; RESP 20
[2017-02-06] MEDS: LORAZEPAM 0.5 MG TAB PO PRN (22:32)
[2017-02-07] MEDS: ZOLPIDEM 5 MG TAB PO PRN (00:22)
--- NOTE | 2017-02-07 00:27 | RADRPT ---
PROCEDURE: knee x-ray CLINICAL INDICATION: Knee pain. TECHNIQUE: AP and lateral views of the right knee were obtained. COMPARISON: None FINDINGS: Intact total knee prosthesis without the loosening. Anatomic alignment. Chronic healed fracture de formity of the proximal fibular metaphysis No joint effusion. No soft tissue or osseous abnormality. IMPRESSION: 1. No fracture or dislocation. 2. Intact total knee prosthesis with anatomic alignment and healed fracture deformity of the proxim al fibula. 3. No soft tissue abnormality. RPTAT:AAJJ Jas Turner Physician Date Time Electronically viewed and signed by Physician Kyrie on 02/07/2017 00:27 SUSANA/
--- NOTE | 2017-02-07 00:30 | RADRPT ---
PROCEDURE: knee x-ray CLINICAL INDICATION: Pain. TECHNIQUE: AP and lateral views of the left knee were obtained. COMPARISON: None FINDINGS: No evidence of fracture or dislocation. Severe medial and lateral compartment joint space narrowing, subchondral sclerosis, and joint spurri ng. Severe patellofemoral joint space narrowing and delayed spurring. Large suprapatellar joint effusion No soft tissue or osseous abnormality. IMPRESSION: 1. No fracture or dislocation. Severe tricompartmental degenerative joint space narrowing and the joint line spurring. 2. Large suprapatellar joint effusion. 3. No soft tissue abnormality. RPTAT:AAJJ Physician Kyrie Date Time Electronically viewed and signed by Physician Kyrie on 02/07/2017 00:29 SUSANA/
--- NOTE | 2017-02-07 00:32 | RADRPT ---
PROCEDURE: Right wrist x-ray CLINICAL INDICATION: Pain. TECHNIQUE: AP and lateral views of the right wrist. COMPARISON: None. FINDINGS: There is no evidence of fracture or dislocation. The bones are normal mineralization without cortical destruction. Moderate joint space narrowing and subchondral sclerosis of the first carpometacarpal joint. The ca rpal bones are otherwise normally aligned with preservation of joint spaces. The remaining visualized bones of the hand are unremarkable. No soft tissue abnormality. IMPRESSION: 1. No fracture or dislocation. Moderate degenerative changes of the first carpometacarpal joint. The wrist joint is otherwise unremarkable. RPTAT:AAJJ Physician Kyrie Date Time Electronically viewed and signed by Physician Kyrie on 02/07/2017 00:32 SUSANA/
--- NOTE | 2017-02-07 00:34 | RADRPT ---
PROCEDURE: XR right Ankle. CLINICAL INDICATION: Pain. TECHNIQUE: AP and lateral views of the right ankle were performed. COMPARISON: None. FINDINGS: No fracture or dislocation. Subchondral sclerosis of the tibial plafond, talar dome, and medial aspe ct of the distal fibula. Anterior tibial spurring compatible with moderate osteoarthritic degenerat vishnu changes. The bones are normal mineralization without cortical destruction. The talar dome is intact and ankle joint mortise well maintained. The remaining bones of the foot an d ankle are unremarkable. No soft tissue or osseous abnormality. IMPRESSION: 1. No fracture, dislocation, or soft tissue abnormality. 2. 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 RPTAT:AAJJ Physician Kyrie Date Time Electronically viewed and signed by Physician Kyrie on 02/07/2017 00:34 SUSANA/
[2017-02-07] MEDS: SOD CHLORIDE 0.9% 1,000 ML IV SCH ×2 (01:54→15:16)
[2017-02-07 02:00] VITALS: BP 139/73; PULSE 93; RESP 18
[2017-02-07] MEDS: HYDROCODONE/APAP (5/325) TAB PO PRN ×4 (03:30→22:03)
[2017-02-07] MEDS: ALBUTEROL/IPRATROPIUM (NEB) 3 ML AMP HHN PRN ×3 (05:04→22:27)
[2017-02-07 07:22] LABS: CALCIUM 9.7 mg/dl (8.4-10.2); CREATININE 0.91 mg/dl (0.61-1.24); POTASSIUM 4.3 mmol/L (3.5-5.1)
[2017-02-07] MEDS: RISPERIDONE 1 MG TAB PO SCH ×2 (08:16→20:59)
--- NOTE | 2017-02-07 09:38 | PSY ---
Date/Time of Note Date/Time of Note DATE: 02/06/17 TIME: 16:48 Psychiatric Subjective Eval Consent Pt consented to telemedicine: Yes Subjective Evaluation Patient location: inpatient Chief Complaint: bib ra 90. hx dementia, pt called w/ multiple complaints. c/o body pain Reason for consult: Evaluation History of present illness This is a 71 year old [place] who was admitted for acute change in mental status, and hyponatremia. His urine osmolatity was 274, and urine sodium was 65, suggestive of SIADH. He was on the following medications: Medications Home Meds Discontinued Reported Medications Ezetimibe* (Zetia*) 10 Mg Tablet, 10 MG PO DAILY, TAB 02/02/17 Escitalopram Oxalate* (Escitalopram Oxalate*) 10 Mg Tablet, 10 MG PO DAILY, #30 TAB 02/02/17 Lidocaine (Lidocaine) 1 Each Adh..patch, 1 EACH TP DAILY 02/02/17 Quetiapine Fumarate* (Quetiapine Fumarate*) 100 Mg Tablet, 100 MG PO HS, TAB 02/02/17 Quetiapine Fumarate* (Quetiapine Fumarate*) 50 Mg Tablet, 50 MG PO TID, TAB 02/02/17 Tamsulosin Hcl* (Tamsulosin Hcl*) 0.4 Mg Cap.er.24h, 0.4 MG PO HS, CAP 02/02/17 Potassium Chloride* (K-Dur*) 20 Meq Tab.prt.sr, 20 MEQ PO DAILY, TAB.SA 02/02/17 Zolpidem Tartrate* (Zolpidem Tartrate*) 10 Mg Tablet, 10 MG PO QHS Y for INSOMNIA, #30 TAB 02/02/17 Amlodipine Besylate* (Norvasc*) 5 Mg Tablet, 5 MG PO DAILY, TAB 02/02/17 Furosemide* (Furosemide*) 40 Mg Tablet, 40 MG PO DAILY, TAB 02/02/17 Divalproex Sodium* (Divalproex Sodium*) 125 Mg Cap.sprink, 125 MG PO QID, #120 CAP 02/02/17 Enalapril Maleate* (Enalapril Maleate*) 20 Mg Tablet, 20 MG PO DAILY, TAB 02/02/17 Discontinued Scripts Ibuprofen* (Motrin*) 400 Mg Tab, 400 MG PO Q6H Y for PAIN AND OR ELEVATED TEMP, #30 TAB Prov:JULIO PERES DO 02/01/17 Upon admission, Lexapro and Depakote was discontinued. Initially he was prescribed Olanzapine and later Risperdal. Over the course of several days, his serum sodium has been increasing. His mental status has also improved modestly. He continues to exhibit signs of narcisa, such as pressured speech, flight of ideas and delusions of grandeur. He also has been less delirious, characterized by improvement in concentration, stabilization of mood (although slightly manic), decrease in confusion and irritability. He was seen by Dr. Garrett on February 04.who noted that his clinical symptoms may be increased due to delirium from hyponatremia . Dr. French, on February 05, suggested that the patient be reassessed when medically stable. During the interview, the patient was alert and oriented to person, place and time. It was not clear if he was aware of the reason for his admission. He did not demonstrate significant signs of dementia, as he recalled 2 of 3 objects in 5 minutes. He was able to recite months of the year backward without difficulty. His mood was mildly elevated. A psychiatric consult was requested to determine if the patient is psychiatrically stable to be discharged. He is apparently on conservatorship. Past psychiatric history States that he has been under psychiatric care since 1971. He said that his psychiatric disability is service connected. He reports having a history of PTSD , as well as bipolar symptoms. He denies any recent history of suicide attempts. He was prescribed Depakote, Lexapro prior to admission. Hospitalization: yes Family History States that both his parents had a history of alcohol abuse. Medical history Problems Medical Problems: (1) Anemia Status: Acute (2) Chronic lower back pain Status: Acute (3) Hyponatremia Status: Acute (4) Psychosis Status: Acute Allergies: Coded Allergies: Unknown: Unable to obtain (Unverified , 02/02/17) Substance Abuse Substance abuse history: Yes (History of alcohol abuse. ) Social History Marital status: single Level of education: High school DPA/Conservatorship: Yes Occupation/Half-Way: disabled Psychiatric Objective Eval Review of Systems: Review of Systems: Not Applicable Constitutional: Normal Eyes: Normal ENT: Normal Neck: Normal Respiratory: Normal Chest/Breast: Normal Cardiovascular: Normal GI: Normal Genitourinary: Normal Skin: Normal Lymphatic: Normal Musculoskeletal: Normal 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: Normal Physical Examination: Sleep: Insomnia Appetite: Adequate Energy: Adequate Interest: Adequate Mental Status Examination: Appearance: Groomed Eye Contact: Good Psychomotor Activity: Normal Behavior: Friendly, Cooperative Speech: Clear, Pressured AFFECT: Intense Mood: Elevated Though Process: Linear, FOI Thought Content: Delusions Suicidal: No Homicidal: No On 72 hour hold: No Orientation: x3 Cognition: Alert Insight: Mild Judgement: Mild Attention Span: Distractible Laboratory Results Laboratory Tests Test 02/05/17 05:25 02/06/17 04:27 Sodium Level 130mmol/L 132mmol/L Potassium Level 4.2mmol/L 4.2mmol/L Chloride Level 106mmol/L 107mmol/L Carbon Dioxide Level 20mmol/L 21mmol/L Anion Gap 8 8 Blood Urea Nitrogen 29mg/dl 26mg/dl Creatinine 1.01mg/dl 0.98mg/dl Glucose Level 87mg/dl 93mg/dl Calcium Level 9.5mg/dl 9.4mg/dl Assessment and Plan Assessment/Diagnosis [place] I: F25.9 Schizoaffective Disorder Mixed type [place] II: Deferred [place] III: Hyponatremia [place] IV: Problems with housing, finance, social support. [place] V: 40 Recommendation/Plan Medication Management Continue Risperdal at current dose; 1mg po bid Suggest Lamotrigine trial for mood stabilization, 25mg po daily for 2 weeks, then 25mg po bid for 2 weeks, then 50mg po bid for 1 week, then 100mg po bid, thereafter. Lamotrigine is less associated with SIADH. This also has not only mood stabilization properties, but may also have antidepressant effects. If manic symptoms persist, consider lithium augmentation at a low dose, such as 150mg po bid. Once clinically stable, Risperdal could be shifted to just in pm to reduce daytime sedation. Once Lamotrigine is in therapeutic range, he may not require any antipsychotic. Risperdal should be reduced based on clincial behavior. As psychosis improves, the dose could be reduced. I suggest 0.5mg po reduction per week. Both Lexapro and Depakote could cause SIADH, and should not be resumed Psychotherapy The patient I believe will return to a alf facility, where he would received adequate supervision and treatment. Should any complications arise, he could be sent back for stabilization. 5150 Recommendation: I do not believe that he is on a 5150. If he is being returned to a SNF, that facility should provide adequate supervision and treatment. ANAYELI WU MD Feb 06, 2017 17:01
[2017-02-07 09:39] VITALS: BP 147/70; RESP 18
[2017-02-07] MEDS: LORAZEPAM 0.5 MG TAB PO PRN (13:48)
--- NOTE | 2017-02-07 15:07 | PN ---
Date/Time of Note Date/Time of Note DATE: 02/07/17 TIME: 14:54 Assessment/Plan VTE Prophylaxis VTE Prophylaxis Intervention: SCD's Lines/Catheters IV Catheter Type (from Nrs): Peripheral IV Urinary Cath still in place: No Assessment/Plan Assessment/Plan 1. Hyponatremia, SIADH related, improved, avoid excessive water 2. Psychiatric disorder schizophrenia, reviewed psychiatrist note, patient does not need 5150. no sitter needed, patient will be discharged to a SNF. will start him on Lamotrigine as recommended 3. Normocytic anemia likely of chronic disease, stable 4. COPD, stable 5. pain on joints, x-ray revealed osteoarthritis, s/p Right knee 6. Prophylaxis: SCDs Subjective 24 Hr Interval Summary Free Text/Dictation No event Exam/Review of Systems Vital Signs Vitals Vital Signs Date Time Temp Pulse Resp B/P Pulse Ox O2 Delivery O2 Flow Rate FiO2 02/07/17 09:39 98.1 93 18 147/70 99 02/07/17 05:04 21 02/07/17 02:00 Room Air Intake and Output 02/06/17 02/06/17 02/07/17 15:00 23:00 07:00 Intake Total 350 ml 2200 ml 1480 ml Output Total 1300 ml Balance 350 ml 900 ml 1480 ml Exam Constitutional: alert, oriented Head: atraumatic, normocephalic Eyes: EOMI, nl conjunctiva, nl lids ENMT: nl external ears & nose, nl lips & teeth, nl nasal mucosa & septum Neck: supple Respiratory: clear to auscultation, normal air movement, No congested cough, No crackles/rales, No diminished breath sounds, No intercostal retraction, No labored breathing, No other, No respirations, No tactile fremitus, No wheezing Cardiovascular: nl pulses, regular rate and rhythm, No S3, No S4, No bruits, No diastolic murmur, No edema, No gallop, No irregular rhythm, No jugular venous distention (JVD), No murmurs/extra sounds, No other, No rub, No systolic murmur Gastrointestinal: nl liver, spleen, non-tender, soft, No ascites, No bowel sounds, No distended, No firm, No hepatomegaly, No mass , No other, No rebound or guarding, No splenomegaly, No surgical scars, No tender Musculoskeletal: nl extremities to inspection Extremities: normal pulses 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, nl mental status, nl speech, nl strength Results Result Diagram: 02/04/17 0515 02/07/17 0603 Results 24 hrs Laboratory Tests Test 02/07/17 06:03 Sodium Level 133 L Potassium Level 4.3 Chloride Level 107 Carbon Dioxide Level 22 Anion Gap 8 Blood Urea Nitrogen 24 H Creatinine 0.91 Glucose Level 95 Calcium Level 9.7 Medications Medications Current Medications Sodium Chloride (NS) 1,000 ml @ 100 mls/hr Q10H IV Last administered on 01:54; Admin Dose 100 MLS/HR; Start 02/02/17 at 14:36 Ondansetron HCl (Zofran Inj) 4 mg Q6H PRN IV NAUSEA AND/OR VOMITING; Start 02/02 at 15:00 Acetaminophen (Tylenol Tab) 650 mg Q6H PRN PO PAIN LEVEL 1-3 OR FEVER; Start at 15:00 Acetaminophen/ Hydrocodone Bitart ([place] (5/325)) 1 tab Q6H PRN PO MODERATE PAIN LEVEL 4-6 Last administered on 02/07/17 10:06; Admin Dose 1 TAB; Start 02/02/17 at 15:00 Morphine Sulfate (morphine) 2 mg Q4H PRN IV SEVERE PAIN LEVEL 7-10 Last administered on 02/04/17 02:17; Admin Dose 2 MG; Start 02/02/17 at 15:00 Lorazepam (Ativan) 0.5 mg Q6 PRN PO ANXIETY Last administered on 02/07/17 13: 48; Admin Dose 0.5 MG; Start 02/02/17 at 22:30 Zolpidem Tartrate (Ambien) 10 mg QHS PRN PO INSOMNIA Last administered on 00:22; Admin Dose 10 MG; Start 02/02/17 at 22:30 Risperidone (Risperdal) 1 mg BID PO Last administered on 02/07/17 08:16; Admin Dose 1 MG; Start 02/05/17 at 21:00 DUNG MCKEON MD Feb 07, 2017 15:05
[2017-02-07] MEDS: LAMOTRIGINE 25 MG TAB PO SCH (15:44)
[2017-02-07 20:14] VITALS: BP 162/77; RESP 18
[2017-02-07 20:52] VITALS: BP 141/82; PULSE 56
[2017-02-07 22:03] VITALS: BP 146/68; PULSE 83
[2017-02-08] MEDS: ZOLPIDEM 5 MG TAB PO PRN (00:56)
[2017-02-08 02:33] VITALS: BP 137/80; RESP 18
[2017-02-08] MEDS: SOD CHLORIDE 0.9% 1,000 ML IV SCH ×2 (04:30→14:42)
[2017-02-08] MEDS: HYDROCODONE/APAP (5/325) TAB PO PRN ×3 (04:33→15:57)
[2017-02-08] MEDS: ALBUTEROL/IPRATROPIUM (NEB) 3 ML AMP HHN PRN (05:28)
[2017-02-08 07:10] LABS: CALCIUM 9.3 mg/dl (8.4-10.2); CREATININE 0.96 mg/dl (0.61-1.24); POTASSIUM 4.4 mmol/L (3.5-5.1)
[2017-02-08 08:10] VITALS: BP 130/66; RESP 18
[2017-02-08] MEDS: RISPERIDONE 1 MG TAB PO SCH (08:12)
[2017-02-08] MEDS: LORAZEPAM 0.5 MG TAB PO PRN ×2 (08:12→14:40)
[2017-02-08] MEDS: LAMOTRIGINE 25 MG TAB PO SCH (08:12)
[2017-02-08 14:45] VITALS: BP 145/69; RESP 18
[2017-02-08] MEDS ORDERED: RIS1 PO (15:55)
[2017-02-08] MEDS ORDERED: LAMO25TA PO (15:57)
--- NOTE | 2017-02-08 16:15 | DS ---
Date/Time of Note Date/Time of Note DATE: 02/08/17 TIME: 15:57 Discharge Summary Admission/Discharge Info Admit Date/Time Feb 04, 2017 at 16:17 Discharge Date/Time Discharge Diagnosis 1. Hyponatremia, SIADH related, improved, 2. Psychiatric disorder schizophrenia, follow up with psychiatry in one week 3. Normocytic anemia likely of chronic disease, stable 4. COPD, stable 5. pain on joints, x-ray revealed osteoarthritis, s/p Right knee Patient Condition: Stable Hx of Present Illness She is a 71-year-old male with history of psychiatric disorder. Patient is a poor historian medical history is unable to be obtained. Patient states he comes in with generalized body pain, patient is very tangential and incoherent, in the ER he was found to have a low sodium. Hospital Course Patient is found of having hyponatremia with Na 124. Lasix was discontinued. It is always considered SIADH, probably from lexapro and depakote. [place] pro and depakote are discontinued. Patient was treated with IVF with NS and free water restriction, Ns has been improved and stable. Last Na is 133 on 02/08/2017. Patient has Schizoaffective Disorder Mixed type that he was consulted with telepsychiatry. Medications are changed to risperdal and Lamotrigine. Psychiatrist Suggests Lamotrigine trial for mood stabilization, 25mg po daily for 2 weeks, then 25mg po bid for 2 weeks, then 50mg po bid for 1 week, then 100mg po bid, thereafter. Lamotrigine is less associated with SIADH. This also has not only mood stabilization properties, but may also have antidepressant effects. If manic symptoms persist, consider lithium augmentation at a low dose , such as 150mg po bid. Once clinically stable, Risperdal could be shifted to just in pm to reduce daytime sedation. Once Lamotrigine is in therapeutic range , he may not require any antipsychotic. Risperdal should be reduced based on clincial behavior. As psychosis improves, the dose could be reduced. I suggest 0.5mg po reduction per week. Both Lexapro and Depakote could cause SIADH, and should not be resumed. Patient once stated he was suicidal and will "put himself into coma" by taking his meds. After three evaluation with psychiatrists, ANAYELI WU MD , the psychiatrist feels patient does not need 5150 but he needs to go to a SNF. Patient needs to follow up with psychiatry outpatient. Home Meds Active Scripts Lamotrigine* (Lamotrigine*) 25 Mg Tablet, 25 MG PO DAILY for 30 Days, TAB Prov:DUNG MCKEON MD 02/08/17 Risperidone* (Risperdal*) 1 Mg Tablet, 1 MG PO BID for 30 Days, TAB Prov:DUNG MCKEON MD 02/08/17 Reported Medications Zolpidem Tartrate* (Zolpidem Tartrate*) 10 Mg Tablet, 10 MG PO QHS Y for INSOMNIA, #30 TAB 02/02/17 Tamsulosin Hcl* (Tamsulosin Hcl*) 0.4 Mg Cap.er.24h, 0.4 MG PO DAILY, CAP 02/02/17 Hydrocodone/Acetaminophen ([place] 5-325 Tablet) 1 Each Tablet, 1 EACH PO Q12 Y for PAIN, TAB 02/02/17 Multivitamin* (Daily Value*) 1 Each Tablet, 1 TAB PO DAILY, TAB 02/02/17 Lorazepam* (Lorazepam*) 0.5 Mg Tablet, 0.5 MG PO Q6 Y for ANXIETY, TAB 02/02/17 Ibuprofen* (Ibuprofen*) 400 Mg Tablet, 400 MG PO TID, TAB 02/02/17 Ezetimibe* (Zetia*) 10 Mg Tablet, 10 MG PO DAILY, TAB 02/02/17 Enalapril Maleate* (Enalapril Maleate*) 20 Mg Tablet, 20 MG PO DAILY, TAB 02/02/17 Albuterol Sulfate* (Albuterol Sulfate* Neb) 0.083%-3 Ml Neb, 2.5 MG NEB Q4H Y for SHORTNESS OF BREATH, #30 VIAL 02/02/17 Discontinued Reported Medications Lidocaine (Lidocaine) 1 Each Adh..patch, 1 EACH TP DAILY 02/02/17 Quetiapine Fumarate* (Seroquel*) 100 Mg Tablet, 100 MG PO HS, #30 TAB 02/02/17 Potassium Bicarbonate/Cit Ac* (Potassium Tablet Effer*) 25 Meq Tablet.eff, 10 MEQ PO DAILY, TAB 02/02/17 Magnesium Hydroxide* (Milk Of Magnesia*) 400 Mg/5 Ml Oral.susp, 30 ML PO Q24H Y for CONSTIPATION, ML 7/8/17 Furosemide* (Furosemide*) 40 Mg/5 Ml Solution, 40 MG PO DAILY, #150 ML 02/02/17 Mineral Oil (Fleet Mineral Oil Enema) 133 Ml Enema, 133 ML RC every 3 days Y for CONSTIPATION, ENEMA 02/02/17 Escitalopram Oxalate* (Escitalopram Oxalate*) 5 Mg/5 Ml Solution, 5 MG PO DAILY , ML 02/02/17 Docusate Sodium* (Docusate Sodium*) 100 Mg Capsule, 100 MG PO DAILY, #30 CAP 02/02/17 Divalproex Sodium* (Depakote* Sprinkle) 125 Mg Cap.sprink, 250 MG PO QHS, #90 CAP 02/02/17 Ezetimibe* (Zetia*) 10 Mg Tablet, 10 MG PO DAILY, TAB 02/02/17 Escitalopram Oxalate* (Escitalopram Oxalate*) 10 Mg Tablet, 10 MG PO DAILY, #30 TAB 02/02/17 Lidocaine (Lidocaine) 1 Each Adh..patch, 1 EACH TP DAILY 02/02/17 Quetiapine Fumarate* (Quetiapine Fumarate*) 100 Mg Tablet, 100 MG PO HS, TAB 02/02/17 Quetiapine Fumarate* (Quetiapine Fumarate*) 50 Mg Tablet, 50 MG PO TID, TAB 02/02/17 Tamsulosin Hcl* (Tamsulosin Hcl*) 0.4 Mg Cap.er.24h, 0.4 MG PO HS, CAP 02/02/17 Potassium Chloride* (K-Dur*) 20 Meq Tab.prt.sr, 20 MEQ PO DAILY, TAB.SA 02/02/17 Zolpidem Tartrate* (Zolpidem Tartrate*) 10 Mg Tablet, 10 MG PO QHS Y for INSOMNIA, #30 TAB 02/02/17 Amlodipine Besylate* (Norvasc*) 5 Mg Tablet, 5 MG PO DAILY, TAB 02/02/17 Furosemide* (Furosemide*) 40 Mg Tablet, 40 MG PO DAILY, TAB 02/02/17 Divalproex Sodium* (Divalproex Sodium*) 125 Mg Cap.sprink, 125 MG PO QID, #120 CAP 02/02/17 Enalapril Maleate* (Enalapril Maleate*) 20 Mg Tablet, 20 MG PO DAILY, TAB 02/02/17 Discontinued Scripts Ibuprofen* (Motrin*) 400 Mg Tab, 400 MG PO Q6H Y for PAIN AND OR ELEVATED TEMP, #30 TAB Prov:JULIO PERES DO 02/01/17 Follow-up Plan follow up with PCP in one week Psychiatry in one week Primary Care Provider Not On Staff Doctor Pending Labs Laboratory Tests Test 02/08/17 05:41 Sodium Level 133mmol/L (135-144) Potassium Level 4.4mmol/L (3.5-5.1) Chloride Level 106mmol/L (97-110) Carbon Dioxide Level 24mmol/L (21-31) Anion Gap 7 (8-16) Blood Urea Nitrogen 23mg/dl (7-20) Creatinine 0.96mg/dl (0.61-1.24) Glucose Level 90mg/dl (70-220) Calcium Level 9.3mg/dl (8.4-10.2) DUNG MCKEON MD Feb 08, 2017 16:08
[2017-02-08 20:19] VITALS: BP 127/58; RESP 20
== END 2017-02-08 20:14 | DRG 645 ==
LOC: E/R 05:55 → PP2 14:15 → OBSVTOIN 02-04 16:17
PROVIDERS: ADMIT Hospitalist; ATTEND Hospitalist
DX: E22.2 Syndrome of inappropriate secretion of antidiuretic hormone (principal); J44.9 Chronic obstructive pulmonary disease, unspecified; D63.8 Anemia in other chronic diseases classified elsewhere; F20.9 Schizophrenia, unspecified; F25.0 Schizoaffective disorder, bipolar type; M25.569 Pain in unspecified knee
CPT/HCPCS: 73100; 73560; 73600; 80048; 80053; 80306; 80307; 81003; 83036; 83735; 83930; 83935; 84100; 84155; 84300; 84443; 85025; 85610; 87081; 93005; 94640; 94664; G0378; J2060; J2270; J3475; J7030